=== PATIENT | female | born 1990 | race Caucasian/White ===

== ENCOUNTER 2025-05-08 11:11 | Emergency (ER) | payer SELFPAY ==
[2025-05-08 11:15] VITALS: BP 136/95
[2025-05-08 11:31] LABS: % Basophils 0.1 % (0-2); % Eosinophils 1.1 % (0-6); % Immature Granulocytes 0.4 % (0-0.5); % Monocytes 6.3 % (1.7-9.3); % Neutrophils 78.1 % (42.2-75.2); Absolute Eosinophils 0.1 10^3/uL (0-0.7); Absolute Lymphocytes 1.2 10^3/uL (1.2-3.4); Absolute Monocytes 0.5 10^3/uL (0.1-0.6); Absolute Neutrophils 6.7 10^3/uL (1.4-6.5); Hematocrit 37.7 % (37.0-47.0); Hemoglobin 12.1 g/dL (12.0-16.0); Mean Corp Hgb Conc. 32.1 g/dL (33.0-37.0); Mean Corpuscular Hgb 27.3 pg (27.0-31.0); Mean Corpuscular Volume 85.1 fL (81.0-99.0); Mean Platelet Volume 9.8 fL (7.4-10.4); Nucleated Red Blood Cells % 0 %; Platelet Count 294 10^3/uL (130-400); Red Blood Cell Count 4.43 10^6/uL (4.20-5.40); Red Cell Dist. Width 14.4 % (11.5-14.5); White Blood Cell Count 8.6 10^3/uL (4.8-10.8)
[2025-05-08 11:47] LABS: HCG, Serum Qualitative Screen Negative
[2025-05-08 11:52] LABS: ALT (SGPT) 19 U/L (0-35); AST (SGOT) 20 U/L (14-36); Acetaminophen < 10 ug/ml (10-30); Albumin 4.5 g/dl (3.5-5.0); Alkaline Phosphatase 47 U/L (38-126); Blood Urea Nitrogen 11 mg/dl (7-17); Calcium 9.4 mg/dl (8.4-10.2); Carbon Dioxide 26 mmol/L (22-30); Chloride 108 mmol/L (98-107); Glucose 125 mg/dl (70-99); Potassium 4.5 mmol/L (3.5-5.1); Salicylate < 1.0 mg/dl (2.0-20.0); Sodium 141 mmol/L (135-145); Total Bilirubin 0.3 mg/dl (0.2-1.3); Total Protein 7.5 g/dl (6.3-8.2); eGFR > 60.00
[2025-05-08 11:55] LABS: Alcohol None Detected
--- NOTE | 2025-05-08 11:58 | ED.GENMED ---
History of Present Illness
<Pato Dockery PA-C - Last Filed: 05/08/25 17:11>
General
Chief Complaint: Psychiatric Problem
Time Seen by Provider: 05/08/25 11:52
History of Present Illness
History of Present Illness:
Patient is a 35-year-old female with past medical history of anxiety here today for evaluation of chest pain that has been occurring intermittently over the past 3 months. More recently over the past 2 weeks pain has become more frequent. She also
reports difficulty taking a deep breath/shortness of breath. No fevers or cough. No vomiting. She does report increased anxiety and stress. No recent surgeries or immobilizations. No active cancer. No personal history of DVT/PE. No unilateral
extremity pain or swelling. No hemoptysis noted. No estrogen use. Patient does report last week she was admitted to a mental health facility at [facility] for anxiety. She was discharged as her symptoms improved however she noted difficulty
sleeping while she was there. She states she was not discharged on any medication and was told to follow-up for outpatient management. She is scheduled to see a therapist. She is not currently on any psychiatric medication. She denies suicidal
or homicidal ideations. She does feel otherwise stable at this time.
Review of Systems
<Pato Dockery PA-C - Last Filed: 05/08/25 17:11>
Review of Systems
All Other Systems: ROS reviewed and negative except as documented in HPI and ROS
Phy Exam
<Pato Dockery PA-C - Last Filed: 05/08/25 17:11>
Physical Exam
Physical Exam:
GENERAL: Alert , in no apparent distress
EYE: pupils equal and reactive
NECK: Supple, no significant adenopathy.
ENT: o/p clr, mmm.
CARDIAC: Regular rate and rhythm .
LUNGS: Clear breath sounds bilaterally, no acute respiratory distress, no wheezes/rales/rhonchi
ABDOMEN: Soft, without focal tenderness, no r/g, no cvat
NEUROLOGICAL: Alert and oriented, no focal neuro deficits
SKIN: Warm and dry, skin intact.
MUSCULOSKELETAL: No edema, well perfused.
PSYCH: Normal and appropriate interaction.
Course
<Pato Dockery PA-C - Last Filed: 05/08/25 17:11>
Orders/Labs/Results
Orders:
Orders
05/08/25 11:20
ECG [Electrocardiogram (*1)] Urgent
Reason for Study: Chest Pain
05/08/25 11:21
EKG- Treatment ONCE
Test Result ONCE
05/08/25 11:24
Acetaminophen Urgent
Alcohol Urgent
Complete Blood Count/With Diff Urgent
Comprehensive Metabolic Panel Urgent
HCG, Serum Qualitative Screen Urgent
Salicylate Urgent
TSH Reflex To Free T4 Urgent
Troponin I Urgent
05/08/25 12:00
CR Chest - 2 Views Urgent
Comment:
Reason For Exam: chest pain
05/08/25 12:01
D-Dimer Urgent
05/08/25 12:27
Crisis Consult Urgent
Reason for Consult: mental
Abnormal Lab Results
05/08/25
11:24
MCHC 32.1 L g/dL
(33.0-37.0)
Absolute Neuts (auto) 6.7 H 10^3/uL
(1.4-6.5)
Neutrophils % 78.1 H %
(42.2-75.2)
Lymphocytes % 14.0 L %
(20.5-51.1)
Chloride 108 H mmol/L
(98-107)
Glucose 125 H mg/dl
(70-99)
Salicylates < 1.0 L mg/dl
(2.0-20.0)
Acetaminophen < 10 L ug/ml
(10-30)
05/08/25 11:24
05/08/25 11:24
Vital Signs
Initial and Last Documented VS:
Initial Vital Signs
Temp Pulse Resp BP Pulse Ox
98.1 F 102 16 136/95 99
05/08/25 11:15 05/08/25 11:15 05/08/25 11:15 05/08/25 11:15 05/08/25 11:15
Last Documented Vital Signs
Temp Pulse Resp BP Pulse Ox
98.1 F 92 18 132/80 100
05/08/25 11:15 05/08/25 14:00 05/08/25 14:00 05/08/25 14:00 05/08/25 14:00
<Riley Martinez, DO - Last Filed: 05/08/25 12:44>
Orders/Labs/Results
Orders:
Orders
05/08/25 11:20
ECG [Electrocardiogram (*1)] Urgent
Reason for Study: Chest Pain
05/08/25 11:21
EKG- Treatment ONCE
Test Result ONCE
05/08/25 11:24
Acetaminophen Urgent
Alcohol Urgent
Complete Blood Count/With Diff Urgent
Comprehensive Metabolic Panel Urgent
HCG, Serum Qualitative Screen Urgent
Salicylate Urgent
TSH Reflex To Free T4 Urgent
Troponin I Urgent
05/08/25 12:00
CR Chest - 2 Views Urgent
Comment:
Reason For Exam: chest pain
05/08/25 12:01
D-Dimer Urgent
05/08/25 12:27
Crisis Consult Urgent
Reason for Consult: mental
Abnormal Lab Results
05/08/25
11:24
MCHC 32.1 L g/dL
(33.0-37.0)
Absolute Neuts (auto) 6.7 H 10^3/uL
(1.4-6.5)
Neutrophils % 78.1 H %
(42.2-75.2)
Lymphocytes % 14.0 L %
(20.5-51.1)
Chloride 108 H mmol/L
(98-107)
Glucose 125 H mg/dl
(70-99)
Salicylates < 1.0 L mg/dl
(2.0-20.0)
Acetaminophen < 10 L ug/ml
(10-30)
05/08/25 11:24
05/08/25 11:24
Vital Signs
Initial and Last Documented VS:
Initial Vital Signs
Temp Pulse Resp BP Pulse Ox
98.1 F 102 16 136/95 99
05/08/25 11:15 05/08/25 11:15 05/08/25 11:15 05/08/25 11:15 05/08/25 11:15
Last Documented Vital Signs
Temp Pulse Resp BP Pulse Ox
98.1 F 92 18 132/80 100
05/08/25 11:15 05/08/25 14:00 05/08/25 14:00 05/08/25 14:00 05/08/25 14:00
<Pato Dockery PA-C - Last Filed: 05/08/25 17:11>
MDM/Problems Addressed
Differential Diagnosis Includes:
Patient is a 35-year-old female with past medical history of anxiety here today for evaluation of chest pain. Overall, patient appears very well. Vitals remarkable for a mildly elevated blood pressure and heart rate. Physical examination
described above. Given reported chest pain and shortness of breath we will obtain a cardiac workup. From a psychiatric standpoint the patient appears to be doing well overall and appears to have capacity to make her own decisions. She does not
appear suicidal or homicidal and appears able to care for herself appropriately. We discussed continued outpatient management and continued follow-up with her therapist/psychiatrist.
Update: Laboratory testing grossly within normal limits. EKG nonischemic. Chest x-ray negative. An attempt was made to obtain additional laboratory testing including D-dimer level but patient declined. Case was discussed with ED attending, "Stephanie"Juan, who evaluated patient at bedside. Crisis evaluation was initiated who evaluated patient at bedside and feels patient is suitable for outpatient therapy. No indication for 302 at this time. Patient suitable to care for herself
appropriately. We will discharge home with recommendations to closely follow-up with her primary care provider. Patient voices understanding. All questions answered. Stable for discharge.
<Pato Dockery PA-C - Last Filed: 05/08/25 17:11>
*Pulse Oximetry
SaO2: 99
Oxygen Mode of Delivery: Room air
Patient hypoxic: no
*EKG
Interpreted by ED Provider?: Yes
EKG Intrepretation Date: 05/08/25
EKG Intrepretation Time: 12:01
Interpretation: normal
Heart Rate: 99
Rate: normal
Rhythm: sinus
Davison: normal axis
Interval: short KS
Ischemia: no ischemia
*Critical Care Note
Total Time (30-74mins, 75-104mins- exclusive of procedures): Not Applicable
ED Attending Note
<Pato Dockery PA-C - Last Filed: 05/08/25 17:11>
-
Portions of this chart may have been created with voice recognition software.� Occasional wrong word or��sound alike� substitutions may have occurred due to the inherent limitations of voice recognition software.
<Riley Martinez DO - Last Filed: 05/08/25 12:44>
ED Attending Note
Patient seen and examined by attending physician: Yes
I performed the substantive portion of visit, reviewed & personally made and approve the management plan that is documented in note by myself or DARA.: Yes
ED Attending Note:
Seen with PA examined independently agree with assessment and plan
Discharge Plan
Departure
Patient Disposition: Home (Routine Discharge)
Date of Disposition: 05/08/25
Time of Disposition: 15:44
Patient with high blood pressure during this ER visit?: No
Condition: Fair
Covid-19: Not Applicable
Discharge Problem:
Chest pain, Anxiety
Instructions: Anxiety, Adult (DC), Chest pain
Referrals:
Nelly Arredondo MD [Family Provider, Internal Medicine] - Follow up in 5-7 days
Activity Restrictions/Additional Instructions:
Follow-up with your doctor within the next 5 to 7 days for close reevaluation.
Return for any new, worsening, or concerning symptoms.
Interventions
Interventions:
*Risk Screen - Suicide Last Done: 05/08/25 11:13
*General Assessment Last Done: 05/08/25 16:59
*ED- Fall Risk Assessment Last Done: 05/08/25 16:59
*ED COVID-19 Vaccine History Last Done: 05/08/25 16:59
*Nursing Disposition Last Done: 05/08/25 16:59
ED- Cardiac Assessment Last Done: 05/08/25 12:00
ED-Psychological Assessment Last Done: 05/08/25 12:00
ED- Pulmonary Assessment Last Done: 05/08/25 12:00
Discharge Date and Time
Discharge Date/Time: 05/08/25 17:00
Print Language: NAURUAN
[2025-05-08 12:20] LABS: Troponin I < 0.012 ng/ml
[2025-05-08 12:39] LABS: TSH Reflex To Free T4 1.98 uIU/ml (0.47-4.68)
[2025-05-08 13:00] VITALS: BMI 22.7
[2025-05-08 14:00] VITALS: BP 132/80
== END 2025-05-08 17:00 | disposition home or self-care (01) ==
LOC: EMR 11:11
PROVIDERS: Emergency Medicine; EMERGENCY PHYSICIAN Emergency Medicine
DX: R07.9 Chest pain, unspecified (principal); F41.9 Anxiety disorder, unspecified
CPT/HCPCS: 99285; 71046; 80053; 80143; 80179; 82077; 84443; 84484; 84703; 85025; 93005